=== PATIENT | male | born 1990 | race Caucasian/White ===

== ENCOUNTER 2017-07-25 10:01 | Day surgery (SDC) | payer OTHER ==
--- NOTE | 2017-07-18 18:05 | HP ---
PREOPERATIVE HISTORY AND PHYSICAL: DATE OF ADMISSION/SURGERY: 07/25/17 DATE OF OFFICE VISIT: 07/18/17 ATTENDING SURGEON: Dr. Yung Michel.* (DICTATED BY AQUILINO MARI) PROCEDURE: Left shoulder removal of hardware. CHIEF COMPLAINT: Left clavicle. HISTORY OF PRESENT ILLNESS: Khang is 27-year-old male, who presents to the clinic for followup of his left clavicle. He had a history of an ORIF of the left clavicle for treatment of a fracture. It was more than a year and a half ago. He continues to have pain due to symptomatic hardware. He has failed conservative measures and therefore agreed to undergo left clavicle removal of hardware with Dr. Michel on 07/25/17. PAST MEDICAL HISTORY: Compression fracture of the L1 and chronic pain. PAST SURGICAL HISTORY: Clavicle ORIF with iliac crest bone graft. The patient denies prior complications with anesthesia. MEDICATIONS: 1. Zolpidem tartrate 10 mg one-half to 1 tab every night at bedtime as needed. 2. Baclofen 10 mg 1 by mouth twice a day as needed. 3. Colace 100 mg 2 tabs twice a day as needed. 4. Percocet 10/325, MDD of 5 a day as needed for pain. 5. Gabapentin 400 mg 1 capsule by mouth 3 times a day. ALLERGIES: No known drug allergies. FAMILY HISTORY: Denies pertinent family history. Denies history of DVT or PE. SOCIAL HISTORY: Works as an organic cook helper vegetable. He smokes 1 pack per day. He denies alcohol use. He denies illegal drug use. REVIEW OF SYSTEMS: A 14-point review of systems was reviewed with the patient. Positive for current complaint, otherwise negative. Denies chest pain, shortness of breath, fever, chills, history of DVT or PE, and history of bleeding disorder. PHYSICAL EXAMINATION GENERAL: A 27-year-old, well-developed, well-nourished man, in no acute distress. Alert and oriented x3. Appropriate mood and affect. VITAL SIGNS: Height 64.5, weight 167, pulse 66, blood pressure 120/74, respiratory rate 16, BMI of 28.2. HEENT: Normocephalic, atraumatic. PERRLA. Throat clear. NECK: Supple. PULMONARY: Lungs are clear to auscultation bilaterally. No wheezing, rhonchi, or rales. CARDIO: Regular rate and rhythm. S1 and S2. No murmurs, gallops, or rubs. No edema. ABDOMEN: Positive bowel sounds, soft, nontender. MUSCULOSKELETAL: Left upper extremity: Well-healed surgical incision, diffusely tender about the clavicle and shoulder. No warmth or erythema. Forward flexion to 150, abduction to 150, external rotation to 75, internal rotation to T8. +5/5 strength to rotator cuff testing. +2 radial pulse. Sensation is intact to light touch distally. DIAGNOSTIC STUDIES: CT revealed poor osseous healing with no evidence of fracture, infection, or impingement. IMPRESSION: Left clavicle symptomatic hardware. PLAN: The patient is scheduled to undergo a left shoulder removal of hardware with Dr. Michel on 07/25/17. He will return to the clinic 10 to 14 days postop for followup and suture removal. Oxycodone 10 mg MDD of 3 a day will be used on top of his chronic pain medications given by the pain clinic. This was approved by the pain clinic and they agree that this is a good plan for postoperative pain. We will manage his pain for about 4 weeks and then he will return to his regular pain clinic medications. AQUILINO MARI [id number]/[facility] #: [id number] MTDDoris
[~2017-07-25 10:01] MED LIST: Buffered Lidocaine 0.9% SYRIN* 5 ML/SYR SYRINGE INTRADERM ONE; Famotidine IV* 10 MG/ML 2 ML (20 mg) IV ONE
[2017-07-25] MEDS ORDERED: Famotidine IV* 10 MG/ML 2 ML (20 mg) ONE (10:22)
[2017-07-25] MEDS ORDERED: fentaNYL* 50 MCG/ML 2 ML VIAL (100 MCG VIAL) ONE (10:47)
[2017-07-25] MEDS ORDERED: Midazolam* 1 MG/ML 10 ML VIAL (10 MG) ONE (10:47)
[2017-07-25] MEDS ORDERED: Bupivacaine 0.25% SDV* 30 ML ONE (10:58)
[2017-07-25] MEDS ORDERED: ceFAZolin 2 GM in NS 0.9% 100 ml IVPB ONE (11:00)
[2017-07-25] MEDS ORDERED: Dexamethasone IV* 4 MG/ML 1 ML (4 MG) ONE (12:05)
[2017-07-25] MEDS ORDERED: Ketorolac INJ* 30 MG/ML 1 ML VIAL ONE (12:05)
[2017-07-25] MEDS ORDERED: Propofol* 10 MG/ML 20 ML BTL IV PUSH ONE (12:05)
[2017-07-25] MEDS ORDERED: Ondansetron INJ* 2 MG/ML VIAL ONE (12:05)
[2017-07-25] MEDS ORDERED: Lidocaine 2% PF * 5 ML VIAL ONE (12:05)
[2017-07-25] MEDS ORDERED: DiMENhydriNATE IV* 50 MG/ML VIAL IV PUSH PRN (13:02)
[2017-07-25] MEDS ORDERED: Naloxone* 0.4 MG/ML 1 ML VIAL IV PRN (13:02)
[2017-07-25] MEDS ORDERED: oxyCODONE/Acetamin 5/325 MG* TAB PO PRN (13:02)
--- NOTE | 2017-07-25 13:33 | RAD ---
CPT II Codes: 6045F INDICATION: Left shoulder pain. Fluoroscopic services provided for referring physician. 3.8 seconds of fluoroscopy time was used. 3 spot images demonstrates removal of hardware from internal fixation. IMPRESSION: Removal of hardware from left clavicle fracture.
[2017-07-25 14:29] VITALS: BP 151/99
--- NOTE | 2017-07-26 22:32 | OP ---
CC: PCP, Dilan Elizabeth MD * DATE OF OPERATION: 07/25/17 - [facility] DATE OF : [birth year] SURGEON: Yung Michel MD LINE SERVICE SUPERVISOR: Prem Dodge MS3 ANESTHESIOLOGIST: Dr. Jason. ANESTHESIA: General. PRE-OP DIAGNOSIS: Left clavicle retained painful hardware. POST-OP DIAGNOSIS: Left clavicle retained painful hardware. OPERATIVE PROCEDURE: Removal of hardware from left clavicle. COMPLICATIONS: None. ESTIMATED BLOOD LOSS: Less than 25 cc. DISPOSITION: Stable. IMPLANTS: None. INDICATIONS: Khang Magallon is a 27-year-old male who underwent open reduction internal fixation of his left clavicle with iliac crest bone graft in September of 2015. His fracture had clinically healed, but he had persistent pain. He attributed to the hardware. We did CT scan to prove that it had healed. We discussed at length the risks and benefits of surgery versus nonoperative treatment. We discussed that it takes 2 years for the screw holes to fill in after taking the plate on. He is at slightly increased risk of fracture. We talked about the risk of damage to nerves, vessels, surrounding structures, wound nonhealing, persistent pain, need for further surgery, scarring, stiffness , incomplete relief of symptoms, and risks of anesthesia. He has elected to proceed with surgery. DESCRIPTION OF PROCEDURE: The patient was greeted in the preoperative area by the attending surgeon. Correct extremity was marked and consent was confirmed. The patient was then brought back to the operating suite where he was placed in supine position on the operating table. Once he was appropriately positioned , he underwent general anesthesia with LMA intubation after which the left shoulder was prepped and draped in the usual sterile fashion beginning with chlorhexidine soap, scrub, and alcohol wipe, and a final prep with ChloraPrep. After appropriate surgical pause indicating side, site, procedure, and administration of antibiotics, previous incision was incised again with a 15 blade. Soft tissues were carefully dissected to expose the platysma and pectoral fascia. Care was taken to try and preserve distal layer for closure. The plate was identified. The soft tissue removed above the plate. Once this was done, the plate was fully exposed. The screws were then removed in their entirety. The patient was then gently loosened with [place] and removed. The rongeur was used to debride the soft tissue above the clavicle where the holes were. The wounds were copiously irrigated with sterile saline. The shoulder was then checked through fluoroscopic views to make sure that there was no evidence of nonunion. There was evidence of a complete united healed fracture. With range of motion, there was no evidence of any kind of displacement of fracture that was propagated. The wounds were copiously irrigated with sterile saline. The deep tissue was closed with 0 Vicryl, the subcutaneous tissues with 2-0 Vicryl and the skin with isaac. 0.25% Marcaine plain were injected about the incision itself. Sterile dressings were applied. He was awoken from anesthesia and transferred to PACU in stable condition. POSTOPERATIVE PLAN: He will be discharged on pain medication, antibiotics. DVT prophylaxis considered, but deferred due to no previous personal or family history. I will see the patient back in 10 to 14 days. He will be wearing sling. He is allowed no lifting, pushing, pulling. He is allowed to work on range of motion. He will be on pain medication for a short while and it was discussed and confirmed with the pain clinic. I will see the patient back in 10 to 14 days. [id number]/[facility] #: [id number] RAY
== END 2017-07-25 14:44 | disposition home or self-care (01) ==
LOC: OR 10:01
PROVIDERS: ATTEND Orthopaedic Surgery
DX: T84.84XA Pain due to internal orthopedic prosthetic devices, implants and grafts, initial encounter (principal); Y83.1 Surgical operation with implant of artificial internal device as the cause of abnormal reaction of the patient, or of later complication, without mention of misadventure at the time of the procedure; F17.210 Nicotine dependence, cigarettes, uncomplicated; S42.002S Fracture of unspecified part of left clavicle, sequela; X58.XXXS Exposure to other specified factors, sequela
CPT/HCPCS: 88300; J0690; J1100; J1885; J2250; J2405; J2704; J3010

== ENCOUNTER 2018-03-19 17:40 | Emergency (ER) | payer OTHER ==
[2018-03-19 18:38] VITALS: BP 148/97
--- NOTE | 2018-03-19 20:43 | UC ---
Back Pain HPI - HPI Summary HPI Summary: 28 year old male with history of chronic pain syndrome presents stating he is presently out of his pain medications. He reports was followed by Gretchen Ruiz at pain management in [place] but was discharged from their service due to a missed appointment. He has been without his medication since 03/08/2018. He states he is trying to establish with Dr. Garcia, pain management, who recommended he come here until an appointment can be made for ongoing prescribing of pain medication. Patient is reporting signs of withdrawal including anxiety, myalgias, insomnia, cold sweats, abdominal cramping, and diarrhea. He admits to obtaining opioid pain medication from friends to treat these symptoms. He took a friend's Percocet earlier today. The [facility] prescription monitoring system was reviewed. Patient last filled a 28 day supply of his oxycodone on 02/08/2018 which is consistent with his story. - History of Current Complaint Chief Complaint: UCMedRefill Stated Complaint: LEFT HIP PAIN Time Seen by Provider: 03/19/18 20:17 Hx Obtained From: Patient Pain Intensity: 8 - Allergies/Home Medications Allergies/Adverse Reactions: Allergies Allergy/AdvReac Type Severity Reaction Status Date / Time COTTON/GAUZE Allergy Intermediate Rash Uncoded 03/19/18 18:25 Home Medications: Home Medications Baclofen TAB* [Lioresal TAB*] 10 mg PO TID PRN 03/19/18 [History Confirmed 03/19] PMH/Surg Hx/FS Hx/Imm Hx - Additional Past Medical History Additional PMH: Chronic pain syndrome, chronic constipation relate to opioid use - Surgical History Surgical History: Yes Surgery Procedure, Year, and Place: 2015 TEETH EXTRACTION, [place]. 09/22/15 LEFT CLAVICLE REPAIR. Bone graft from left hip used for clavicle repair. - Family History Family History: noncontributory - Social History Occupation: Disabled Lives: With Family Alcohol Use: Occasionally Substance Use Type: Prescribed Substance Use Comment - Amount & Last Used: see mar Smoking Status (MU): Current Every Day Smoker Type: Cigarettes Amount Used/How Often: 1 PPD Length of Time of Smoking/Using Tobacco: 13 yrs Have You Smoked in the Last Year: Yes - HAS A PRESCRIPTION FOR CHANTIX BUT HAS NOT USED YET When Did the Patient Quit Smoking/Using Tobacco: 09/15/2015 Household Exposure Type: Cigarettes Review of Systems Constitutional: Negative Skin: Negative Respiratory: Negative Cardiovascular: Negative Gastrointestinal: Abdominal Pain, Diarrhea Musculoskeletal: Myalgia, Other: - See HPI Is Patient Immunocompromised?: No All Other Systems Reviewed And Are Negative: Yes Physical Exam Triage Information Reviewed: Yes Appearance: No Pain Distress, Ill-Appearing - chronically, Thin Vital Signs: Initial Vital Signs Temp 98.8 F 03/19/18 18:31 Pulse 89 03/19/18 18:31 Resp 16 03/19/18 18:31 BP 148/97 03/19/18 18:31 Pulse Ox 100 03/19/18 18:31 Vital Signs Reviewed: Yes Respiratory: Positive: Lungs clear, Normal breath sounds, No respiratory distress Cardiovascular: Positive: RRR, No Murmur, Pulses Normal, Brisk Capillary Refill Abdomen Description: Positive: Nontender, No Organomegaly, Soft. 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 He was recently discharged from pain clinic in [place] for a missed appointment. He is establishing care with Dr. Garcia. Has been out of medications since 03/08/2018, has been experiencing withdrawal symptoms, and admits to taking friend's opioid medication to prevent withdrawal. [facility] prescription monitoring program was consulted and appears congruent with his story. Considering that the patient appears to be giving a truthful accounting and is reporting withdrawal symptoms will provide him with a 7 day supply of his medication with the understanding that he needs to establish with pain management or have his medications prescribed by PCP as no further prescriptions will be given through . Verbalizes understanding. - Differential Dx/Diagnosis Provider Diagnoses: Chronic pain disorder, opioid dependence Discharge - Sign-Out/Discharge Documenting (check all that apply): Patient Departure All imaging exams completed and their final reports reviewed: No Studies - Discharge Plan Condition: Stable Disposition: HOME Prescriptions: Docusate CAP* [Colace Cap*] 100 mg PO BEDTIME PRN #30 cap PRN Reason: Constipation Oxycodone TAB(NF) [Oxycodone HCl 10 MG] 10 mg PO Q4H PRN #42 tab MDD 6 PRN Reason: Pain Patient Education Materials: Chronic Pain (ED), Opioid Dependence (ED) Referrals: Dilan Elizabeth MD [Primary Care Provider] - 2 Weeks (To have your blood pressure rechecked.) Additional Instructions: I am providing with a 7 day supply of your oxycodone. It is important you take this exactly as prescribed and you contact Dr. Garcia office to manage your pain medications. We will not be able to continue to prescribe this to you on a routine basis. Your blood pressure was elevated in the clinic tonight. Follow up with your primary care provider in 2 weeks for recheck. Seek immediate medical attention in the emergency room if you develop headache, dizziness, chest pain, feeling like her heart is racing or skipping beats, difficulty breathing, persistent vomiting or diarrhea, tremors, or any symptoms of serious withdrawal. - Billing Disposition and Condition Condition: STABLE Disposition: Home
== END 2018-03-19 20:54 | disposition home or self-care (01) ==
LOC: UCCORT 17:40
DX: G89.4 Chronic pain syndrome (principal); F11.20 Opioid dependence, uncomplicated; F17.210 Nicotine dependence, cigarettes, uncomplicated; Z76.0 Encounter for issue of repeat prescription; Z91.048 Other nonmedicinal substance allergy status
CPT/HCPCS: 99212; G0463

== ENCOUNTER 2018-04-07 12:50 | Emergency (ER) | payer OTHER ==
[2018-04-07 13:11] VITALS: BP 152/85
--- NOTE | 2018-04-07 14:24 | UC ---
General HPI - HPI Summary HPI Summary: PT IS C/O CHRONIC PAIN TO HIS BACK AND COLLAR BONE. HE REPORTS BEING OUT OF HIS OXYCODONE SINCE HIS LAST VISIT HERE ON 03/19/18. HE IS REQUESTING A REFILL FROM US. HE STATES THAT THERE IS A DELAY WITH HIM GETTING IN TO DR ROJAS. HE REPORTS BEING KICKED OUT OF HIS LAST PAIN CLINIC DUE TO MISSING AN APPOINTMENT. HE DID GO THE THE ER YESTERDAY AND WAS GIVEN A SINGLE OXYCODONE. HE HAS HAD NO ACUTE INJURY. - History of Current Complaint Chief Complaint: UCMedRefill Stated Complaint: LOWER BACK/COLLARBONE Time Seen by Provider: 04/07/18 13:57 Hx Obtained From: Patient Pain Intensity: 10 - Allergy/Home Medications Allergies/Adverse Reactions: Allergies Allergy/AdvReac Type Severity Reaction Status Date / Time COTTON/GAUZE Allergy Intermediate Rash Uncoded 04/07/18 13:12 PMH/Surg Hx/FS Hx/Imm Hx - Additional Past Medical History Additional PMH: CHRONIC BACK AND LEFT CLAVICLE PAIN - Surgical History Surgical History: Yes Surgery Procedure, Year, and Place: 2015 TEETH EXTRACTION, [place]. 09/22/15 LEFT CLAVICLE REPAIR. Bone graft from left hip used for clavicle repair. - Family History Known Family History: Positive: None Family History: noncontributory - Social History Occupation: Works From/At Home - [employer] Alcohol Use: Occasionally Substance Use Type: Prescribed Substance Use Comment - Amount & Last Used: see mar Smoking Status (MU): Current Every Day Smoker Type: Cigarettes Amount Used/How Often: 1 PPD Length of Time of Smoking/Using Tobacco: 13 yrs Have You Smoked in the Last Year: Yes - HAS A PRESCRIPTION FOR CHANTIX BUT HAS NOT USED YET When Did the Patient Quit Smoking/Using Tobacco: 09/15/2015 Household Exposure Type: Cigarettes Review of Systems Constitutional: Negative Skin: Negative Eyes: Negative ENT: Negative Respiratory: Negative Cardiovascular: Negative Gastrointestinal: Negative Genitourinary: Negative Motor: Negative Neurovascular: Negative Musculoskeletal: Other: - CHRONIC BACK AND LEFT CLAVICLE PAIN Neurological: Negative Psychological: Negative Is Patient Immunocompromised?: No All Other Systems Reviewed And Are Negative: Yes Physical Exam Triage Information Reviewed: Yes Appearance: Well-Appearing Vital Signs: Initial Vital Signs Temp 98.9 F 04/07/18 13:05 Pulse 85 04/07/18 13:05 Resp 18 04/07/18 13:05 BP 152/85 04/07/18 13:05 Pulse Ox 100 04/07/18 13:05 Vital Signs Reviewed: Yes Eyes: Positive: Conjunctiva Clear ENT: Positive: Pharynx normal, TMs normal, Other - No tremor to tongue. Negative: Nasal congestion, Nasal drainage Neck: Positive: Supple, Nontender, No Lymphadenopathy Respiratory: Positive: Lungs clear, Normal breath sounds Cardiovascular: Positive: RRR, No Murmur, Other: - HR=84. Negative: Tachycardia Abdomen Description: Positive: Nontender, No Organomegaly, Soft Bowel Sounds: Positive: Present Musculoskeletal: Positive: ROM Intact, Other: - No tremor Neurological: Positive: Alert Psychological: Positive: Age Appropriate Behavior Skin Exam: Normal, Other - No sweating Course/Dx - Course Course Of Treatment: search on pt showed a long hx of narcotic prescriptions. the last was from this site on 03/19/18. also, pt obtained a narcotic from the ER yesterday by pt hx. on 01/30/18, there is a note documenting his discharge from a pain clinic for non compliance. at that time, he was given information to taper himself off the oxycodone. During this stay, pt went from citing the discharge from the pain clinic was or a missed appointment to taking hydrocodone not prescribed by that clinic. His BP is mildly elevated; however, he has no tachycardia. He has no tremor and no sweating or n/v/d. I have no concern for withdrawl. This is an issue of chronic pain and non compliance with pain management plus seeking narcotics from multiple sites. I have explained to the pt that I will not be providing him with a refill on the oxycodone and that we do not treat chronic pain. Pt states he is awaiting the f/u appt with Dr Rojas. I am going to provide him with [facility] physician referral as well in the event he needs help with a f/u appt. - Differential Dx - Multi-Symptom Provider Diagnoses: chronic pain. Seeking Narcotic refill-non given Discharge - Sign-Out/Discharge Documenting (check all that apply): Patient Departure All imaging exams completed and their final reports reviewed: No Studies - Discharge Plan Condition: Stable Disposition: HOME Patient Education Materials: Chronic Pain (ED) Referrals: Dilan Elizabeth MD [Primary Care Provider] - Quinton Rojas DO [Doctor of Osteopathy] - As Soon As Possible [facility] PHYSICIAN REFERRAL [Outside] Additional Instructions: CALL THE [facility] PHYSICIAN REFERRAL IF YOU NEED HELP WITH FOLLOW UP APPOINTMENTS. - Billing Disposition and Condition Condition: STABLE Disposition: Home
== END 2018-04-07 14:30 | disposition home or self-care (01) ==
LOC: UCCORT 12:50
DX: G89.29 Other chronic pain (principal); M54.5 Low back pain; F17.210 Nicotine dependence, cigarettes, uncomplicated
CPT/HCPCS: 99211; G0463